=== PATIENT | male | born 1970 | race Caucasian/White ===

== ENCOUNTER → 2016-12-09 | Outpatient (CLI) | payer OTHER ==
--- NOTE | 2016-12-09 13:55 | DIAGNOSTIC IMAGING REPORT ---
LEFT KNEE MRI HISTORY: LEFT KNEE PAIN COMPARISON STUDY: None. TECHNIQUE: Multiplanar multisequence MRI of the left knee was performed according to standard department protocol without the use of contrast. FINDINGS: Menisci: There appears to be a small horizontal tear at the body of the medial meniscus best seen on the coronal proton density/T1 sequences image 18. This extends to the tibial surface. The lateral meniscus is intact. Ligaments: The anterior and posterior cruciate ligaments are intact. The LCL is normal in appearance. There is mild thickening and edema within the mid MCL consistent with a low-grade partial tear. Extensor mechanism: The quadriceps tendon and patellar ligament are intact. Articular cartilage and bone: No fractures. Mild cartilage fraying and thinning within the medial femoral condyle. The lateral compartment is intact. There is mild cartilage irregularity at the patella. Joint effusion: Small. Soft tissues: Intact. IMPRESSION: 1. Small horizontal tear within the body of the medial meniscus. 2. Low-grade partial tear at the mid aspect of the MCL. 3. Small joint effusion. 4. 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 Electronically signed by: Trevor Stuart M.D. 12/09/2016 1:54 PM Dictated Date/Time: 12/09/2016 1:32 PM
== END | disposition home or self-care (01) ==
LOC: C.MRIBC 12:18
PROVIDERS: ATTEND Orthopaedic Surgery
DX: M25.562 Pain in left knee (principal)